=== PATIENT | female | born 1950 | race Caucasian/White ===

== ENCOUNTER 2016-12-27 10:07 | Day surgery (SDC) | payer MEDICARE, BC ==
[2016-12-26 13:35] VITALS: BP 110/75
[~2016-12-27] VITALS: Ht 160 cm; Wt 72.9 kg
[~2016-12-27 10:07] MED LIST: ALBU8.5H3 IH; ALPR-475 PO; AZEL23SP NS; BACITRACIN 50,000 UNIT ONE; BACITRACIN OINT 500U/GM, 15 GM ONE; CALC-126 PO; CETI-222 PO; CHOL200024 PO; EPINEPHRINE 1 MG/ML, 1ML ONE; EPINEPHRINE TOPICAL SOLN 1 MG/ML, 30ML ONE; ESTR10TA PO; FEXO1TAB25 PO; FLUO10TA PO; FLUORESCEIN OPHTHALMIC 1 MG STRIP ONE; FLUT16SP NAS; FLUT1DIS3 INH; GABA300C10 PO; GUAI-110 PO; IBUP200T48 PO; LIDOCAINE/PF 1%, 30ML ONE; MONT10TA6 PO; OMEP40CA6 PO; OXYMETAZOLINE NASAL SPRAY 0.05%, 15ML ONE; TOPI50TA77 PO; TRAZ50TA18 PO; [UNRECOGNIZED DRUG - OTHER] TP
[2016-12-27] MEDS ORDERED: LACTATED RINGERS 1,000 ML IV SCH (10:24)
[2016-12-27 10:25] VITALS: BP 110/75
[2016-12-27] MEDS ORDERED: LIDOCAINE 1%, 2ML SQ PRN (10:30)
[2016-12-27] MEDS ORDERED: LIDOCAINE/PF 1%, 30ML ONE (11:55)
[2016-12-27] MEDS ORDERED: EPINEPHRINE 1 MG/ML, 1ML ONE (11:55)
[2016-12-27] MEDS ORDERED: FENTANYL PF 250 MCG/5ML ONE (12:10)
[2016-12-27] MEDS ORDERED: METOCLOPRAMIDE 5 MG/ML, 2ML ONE (12:16)
[2016-12-27] MEDS ORDERED: ROCURONIUM 10 MG/ML ONE (12:16)
[2016-12-27] MEDS ORDERED: SUCCINYLCHOLINE 20 MG/ML, 10ML ONE (12:16)
[2016-12-27] MEDS ORDERED: LIDOCAINE 2% 100MG/5ML SYRINGE ONE (12:16)
[2016-12-27] MEDS ORDERED: PHENYLEPHRINE 10 MG/ML ONE (12:16)
[2016-12-27] MEDS ORDERED: PROPOFOL 10 MG/ML, 20ML ONE (12:16)
[2016-12-27] MEDS ORDERED: DEXAMETHASONE 4 MG/ML, 1ML ONE (12:16)
[2016-12-27] MEDS ORDERED: ONDANSETRON 2MG/ML, 2ML ONE (12:16)
[2016-12-27] MEDS ORDERED: CEFAZOLIN 1,000 MG ONE (12:16)
[2016-12-27] MEDS ORDERED: hydrALAzine 20 MG/ML, 1ML IV PRN (13:00)
[2016-12-27] MEDS ORDERED: MIDAZOLAM 1 MG/ML, 2ML IV PRN (13:00)
[2016-12-27] MEDS ORDERED: FENTANYL PF 100 MCG/2ML IV PRN (13:00)
[2016-12-27] MEDS ORDERED: LABETALOL 5MG/ML, 20ML IV PRN (13:00)
[2016-12-27] MEDS ORDERED: HYDROmorphone 1 MG/ML, 1ML IV PRN (13:00)
[2016-12-27] MEDS ORDERED: ONDANSETRON 2MG/ML, 2ML IVPush PRN (13:00)
[2016-12-27] MEDS ORDERED: MEPERIDINE/PF 25MG/0.5ML IVPush PRN (13:00)
[2016-12-27] MEDS ORDERED: OXYcodone 5 MG/5 ML ORAL.SOL UDC PO PRN (13:00)
[2016-12-27] MEDS ORDERED: PROMETHAZINE 25 MG/ML, 1ML IV PRN (13:00)
[2016-12-27] MEDS ORDERED: OXYcodone 5 MG/5 ML ORAL.SOL UDC ONE (13:47)
[2016-12-27] MEDS ORDERED: FENTANYL PF 100 MCG/2ML ONE (13:47)
[2016-12-27] MEDS ORDERED: ACETAMINOPHEN 650 MG/20.3 ML UDC ONE (13:48)
[2016-12-27] MEDS ORDERED: ACETAMINOPHEN 650 MG/20.3 ML UDC PO PRN (14:00)
== END 2016-12-27 15:30 | disposition home or self-care (01) ==
LOC: OUT 10:07
PROVIDERS: ATTEND Otolaryngology
DX: J32.9 Chronic sinusitis, unspecified (principal); J02.9 Acute pharyngitis, unspecified; J45.909 Unspecified asthma, uncomplicated; K21.9 Gastro-esophageal reflux disease without esophagitis; F41.9 Anxiety disorder, unspecified; F32.9 Major depressive disorder, single episode, unspecified; I25.10 Atherosclerotic heart disease of native coronary artery without angina pectoris; Z86.73 Personal history of transient ischemic attack (TIA), and cerebral infarction without residual deficits; Z88.1 Allergy status to other antibiotic agents
CPT/HCPCS: 31255; 31256; 31276; 31535; 88304; 88305; 93005; J0171; J0330; J0690; J1100; J2370; J2405; J2704; J2765; J3010; J3490; J7120